=== PATIENT | male | born 1955 | race Caucasian/White ===

== ENCOUNTER 2017-06-28 04:56 | Emergency (ER) | payer BC ==
[~2017-06-28 04:56] MED LIST: PREVACID SOLUTA15 MG PO
[2017-06-28 07:27] VITALS: BP 143/79
[2017-06-28] MEDS ORDERED: NORCO1 TA2 PO (13:07)
[2017-06-28] MEDS ORDERED: SAW PALMETTO80 MG (14:16)
== END 2017-06-28 07:27 | disposition home or self-care (01) ==
LOC: ED 04:56
DX: N39.0 Urinary tract infection, site not specified (principal); R03.0 Elevated blood-pressure reading, without diagnosis of hypertension; Z88.0 Allergy status to penicillin; Z88.1 Allergy status to other antibiotic agents; Z88.8 Allergy status to other drugs, medicaments and biological substances

== ENCOUNTER 2017-06-28 12:36 | Inpatient (IN) | payer BC ==
[~2017-06-28] VITALS: Ht 167.6 cm; Wt 88.9 kg
[2017-06-28] MEDS ORDERED: NORCO1 TA2 PO (13:07)
[2017-06-28 14:12] LABS: BASOPHIL % 0.1 % (0-2); PLATELET COUNT 222 x10^3mcL (130-400); RED CELL DISTRIBUTION WIDTH 13.3 % (11.5-14.5)
[2017-06-28 14:15] LABS: CALCIUM 8.9 mg/dL (8.5-10.1); CARBON DIOXIDE 25.5 mmol/L (21-32); CHLORIDE SERUM 97 mmol/L (98-107); CREATININE SERUM 1.1 mg/dL (0.7-1.3); GFR1 > 60 mL/min; GLUCOSE SERUM 160 mg/dL (74-106); POTASSIUM SERUM 3.5 mmol/L (3.5-5.1); SODIUM SERUM 131 mmol/L (136-145)
[2017-06-28] MEDS ORDERED: SAW PALMETTO80 MG (14:16)
[2017-06-28 14:19] LABS: ALBUMIN 3.5 g/dL (3.4-5.0); ALKALINE PHOSPHATASE 90 U/L (46-116); ALT/SGPT 35 U/L (16-63); AMYLASE 63 U/L (25-115); AST/SGOT 25 U/L (15-37); BILIRUBIN TOTAL 1.3 mg/dL (0.20-1.00); LIPASE 84 IU/L (73-393); TOTAL PROTEIN, SERUM 7.9 g/dL (6.4-8.2)
[2017-06-28 15:02] LABS: UA SPECIFIC GRAVITY <=1.005 (1.005-1.035); microscopic required? YES; urine erythrocyte 2+ (NEGATIVE)
[2017-06-28 15:04] LABS: AMPHETAMINE QUAL UR NONE DETECTED (NEG <=1000)
[2017-06-28 15:51] LABS: FREE T4 1.56 ng/dL (0.76-1.46); FREE THYROXINE INDEX 4.4 ug/dL (1.4-4.5); T3 TOTAL 1.19 ng/mL; T4(THYROXINE) 12.3 ug/dL (4.7-13.3)
[2017-06-28 15:52] LABS: CHOLESTEROL/HDL RATIO 2.7; PHOSPHOROUS 2.7 mg/dL (2.5-4.9)
[2017-06-28 17:00] VITALS: BP 127/86
[2017-06-28 20:42] VITALS: BP 138/78
[2017-06-29 05:49] VITALS: BP 155/91
[2017-06-29 09:53] VITALS: BP 135/78
[2017-06-29 15:52] VITALS: BP 132/81
[2017-06-29 18:54] VITALS: BP 109/81
[2017-06-29 21:06] VITALS: BP 122/75
[2017-06-30 05:56] VITALS: BP 127/80
[2017-06-30 07:09] LABS: BASOPHIL % 0.2 % (0-2); PLATELET COUNT 178 x10^3mcL (130-400)
[2017-06-30 07:25] LABS: CALCIUM 8.5 mg/dL (8.5-10.1); CARBON DIOXIDE 27.2 mmol/L (21-32); CHLORIDE SERUM 103 mmol/L (98-107); CREATININE SERUM 0.8 mg/dL (0.7-1.3); GFR1 > 60 mL/min; GLUCOSE SERUM 113 mg/dL (74-106); MAGNESIUM 2.1 mg/dL (1.8-2.4); PHOSPHOROUS 2.8 mg/dL (2.5-4.9); POTASSIUM SERUM 3.7 mmol/L (3.5-5.1); SODIUM SERUM 137 mmol/L (136-145)
[2017-06-30 09:38] VITALS: BP 132/81
[2017-06-30 14:00] VITALS: BP 130/85
[2017-06-30 17:16] VITALS: BP 130/85
[2017-06-30 21:24] VITALS: BP 119/80
[2017-07-01 05:48] VITALS: BP 122/68
[2017-07-01 06:22] LABS: CALCIUM 8.6 mg/dL (8.5-10.1); CARBON DIOXIDE 28.6 mmol/L (21-32); CHLORIDE SERUM 104 mmol/L (98-107); CREATININE SERUM 0.8 mg/dL (0.7-1.3); GFR1 > 60 mL/min; GLUCOSE SERUM 102 mg/dL (74-106); MAGNESIUM 2.1 mg/dL (1.8-2.4); PHOSPHOROUS 2.7 mg/dL (2.5-4.9); POTASSIUM SERUM 4.1 mmol/L (3.5-5.1); SODIUM SERUM 138 mmol/L (136-145)
[2017-07-01 06:32] LABS: BASOPHIL % 0.5 % (0-2); PLATELET COUNT 182 x10^3mcL (130-400); RED CELL DISTRIBUTION WIDTH 12.9 % (11.5-14.5)
[2017-07-01] MEDS ORDERED: FLO4 PO (10:36)
[2017-07-01 10:37] VITALS: BP 134/79
[2017-07-01 13:03] VITALS: BP 150/94
[2017-07-01 15:30] VITALS: BP 139/74
== END 2017-07-01 16:00 | disposition home or self-care (01) | DRG 725 ==
LOC: ED 12:36 → DU 13:27 → MU 07-01 10:14
PROVIDERS: Emergency Medicine; ADMIT Family Medicine Sports Medicine
DX: N40.0 Benign prostatic hyperplasia without lower urinary tract symptoms (principal); N17.0 Acute kidney failure with tubular necrosis; E87.1 Hypo-osmolality and hyponatremia; R33.8 Other retention of urine; Z88.0 Allergy status to penicillin; Z88.8 Allergy status to other drugs, medicaments and biological substances; I10 Essential (primary) hypertension; Z80.9 Family history of malignant neoplasm, unspecified; Z82.49 Family history of ischemic heart disease and other diseases of the circulatory system; E87.8 Other disorders of electrolyte and fluid balance, not elsewhere classified
CPT/HCPCS: 83880; 84439; 94150; J2270; J2405; J7030; Q0092; Q9967

== ENCOUNTER 2017-07-02 18:51 | Emergency (ER) | payer BC ==
[~2017-07-02] VITALS: Ht 172.7 cm; Wt 81.7 kg
[~2017-07-02 18:51] MED LIST changes: +FLO4 PO; +NORCO1 TA2 PO; +SAW PALMETTO80 MG
[2017-07-02 19:07] VITALS: BP 131/92
== END 2017-07-02 21:20 | disposition home or self-care (01) ==
LOC: ED 18:51
DX: N39.0 Urinary tract infection, site not specified (principal); K59.00 Constipation, unspecified; Z88.0 Allergy status to penicillin; Z88.1 Allergy status to other antibiotic agents; Z88.2 Allergy status to sulfonamides
CPT/HCPCS: 76770; Q0092

== ENCOUNTER 2017-07-27 23:08 | Emergency (ER) | payer BC ==
[2017-07-28 01:38] VITALS: BP 135/86
== END 2017-07-28 01:38 | disposition home or self-care (01) ==
LOC: ED 23:08
DX: F41.0 Panic disorder [episodic paroxysmal anxiety] (principal); N40.0 Benign prostatic hyperplasia without lower urinary tract symptoms
CPT/HCPCS: Q0092

== ENCOUNTER 2017-07-28 19:43 | Emergency (ER) | payer BC ==
[~2017-07-28] VITALS: Ht 172.7 cm; Wt 78.9 kg
[2017-07-28 19:57] VITALS: Ht 172.7 cm; Wt 78.9 kg
[2017-07-28 21:02] LABS: UA SPECIFIC GRAVITY <=1.005 (1.005-1.035); microscopic required? YES; urine erythrocyte 3+ (NEGATIVE)
[2017-07-28 22:15] VITALS: BP 121/79
== END 2017-07-28 22:22 | disposition home or self-care (01) ==
LOC: ED 19:43
PROVIDERS: Emergency Medicine
DX: R33.9 Retention of urine, unspecified (principal); I10 Essential (primary) hypertension; Z88.0 Allergy status to penicillin; Z88.1 Allergy status to other antibiotic agents; Z88.2 Allergy status to sulfonamides

== ENCOUNTER 2017-08-04 22:29 | Emergency (ER) | payer BC ==
[~2017-08-04] VITALS: Ht 172.7 cm; Wt 83.0 kg
[2017-08-04 22:51] VITALS: Ht 172.7 cm; Wt 83.0 kg
[2017-08-05 03:22] LABS: BASOPHIL % 0.4 % (0-2); PLATELET COUNT 206 x10^3mcL (130-400); RED CELL DISTRIBUTION WIDTH 13.3 % (11.5-14.5)
[2017-08-05 03:33] LABS: CALCIUM 8.8 mg/dL (8.5-10.1); CARBON DIOXIDE 26.1 mmol/L (21-32); CHLORIDE SERUM 104 mmol/L (98-107); CREATININE SERUM 0.8 mg/dL (0.7-1.3); GFR1 > 60 mL/min; GLUCOSE SERUM 109 mg/dL (74-106); SODIUM SERUM 139 mmol/L (136-145)
[2017-08-05 03:37] LABS: ALKALINE PHOSPHATASE 110 U/L (46-116); ALT/SGPT 37 U/L (16-63); AST/SGOT 17 U/L (15-37); BILIRUBIN TOTAL 0.6 mg/dL (0.20-1.00)
[2017-08-05 03:39] LABS: ALBUMIN 3.2 g/dL (3.4-5.0)
[2017-08-05 05:51] VITALS: BP 117/65
== END 2017-08-05 05:51 | disposition home or self-care (01) ==
LOC: ED 22:29
PROVIDERS: Emergency Medicine
DX: R07.89 Other chest pain (principal); I10 Essential (primary) hypertension; Z88.0 Allergy status to penicillin; Z88.1 Allergy status to other antibiotic agents; Z88.2 Allergy status to sulfonamides
CPT/HCPCS: 36415

== ENCOUNTER 2017-11-03 12:14 | Emergency (ER) | payer BC ==
[~2017-11-03] VITALS: Ht 172.7 cm; Wt 78.0 kg
[2017-11-03 12:25] VITALS: Ht 172.7 cm; Wt 78.0 kg
[2017-11-03 12:59] LABS: BASOPHIL % 0.3 % (0-2); PLATELET COUNT 200 x10^3mcL (130-400); RED CELL DISTRIBUTION WIDTH 13.7 % (11.5-14.5)
[2017-11-03 13:08] LABS: CALCIUM 9.4 mg/dL (8.5-10.1); CARBON DIOXIDE 25.9 mmol/L (21-32); CHLORIDE SERUM 105 mmol/L (98-107); GFR1 > 60 mL/min; GLUCOSE SERUM 130 mg/dL (74-106); POTASSIUM SERUM 3.9 mmol/L (3.5-5.1); SODIUM SERUM 140 mmol/L (136-145)
[2017-11-03 13:24] LABS: ALBUMIN 3.5 g/dL (3.4-5.0); ALKALINE PHOSPHATASE 100 U/L (46-116); ALT/SGPT 38 U/L (16-63); AST/SGOT 20 U/L (15-37); BILIRUBIN TOTAL 0.61 mg/dL (0.20-1.00); T4(THYROXINE) 9.4 ug/dL (4.7-13.3); TOTAL PROTEIN, SERUM 7.5 g/dL (6.4-8.2)
[2017-11-03 13:57] LABS: microscopic required? YES; urine erythrocyte 1+ (NEGATIVE)
[2017-11-03 15:46] VITALS: BP 128/71
== END 2017-11-03 15:46 | disposition home or self-care (01) ==
LOC: ED 12:14
PROVIDERS: Emergency Medicine
DX: E86.0 Dehydration (principal); N39.0 Urinary tract infection, site not specified; I10 Essential (primary) hypertension; Z88.1 Allergy status to other antibiotic agents; Z88.0 Allergy status to penicillin
CPT/HCPCS: 36600; 83880; 85378; J7030; Q0092